=== PATIENT | female | born 1955 | race Caucasian/White ===

== ENCOUNTER 2018-07-21 16:02 | Emergency (ER) | payer BC ==
[2018-07-21 17:37] LABS: #Lymphocytes 1.7 thou/uL (1.20-3.40); #Monocytes 0.3 thou/uL (0.11-0.59); #Neutrophils 2.5 thou/uL (1.40-6.50); %Basophils 0.9 % (0.0-1.0); %Eosinophils 0.5 % (0.0-10.0); %Lymphocytes 36.2 % (21.0-51.0); %Monocytes 7.4 % (0.0-10.0); Hemoglobin 13.8 g/dL (12.0-16.0); Mean Corpuscular HGB CONC 34.8 g/dL (32.0-36.0); Mean Corpuscular Hemoglobin 34.1 pg (27.0-31.0); Mean Corpuscular Volume 98.2 fL (78.0-98.0); Platelet Count 208 thou/uL (130-400); RBC Distribution Width 12.3 % (11.5-14.5); Red Blood Cell (RBC) Count 4.05 mill/uL (4.20-5.40); White Blood Cell (WBC) Count 4.6 thou/uL (4.8-10.8)
--- NOTE | 2018-07-21 17:40 | CT ---
HEAD CT WITHOUT CONTRAST: History: Headache. Comparison: None. FINDINGS: No parenchymal hemorrhage. No extraaxial hematoma. No midline shift. Basilar cisterns are patent. Age appropriate brain volume. Cortical martin white matter differentiation preserved. No evidence of hydrocephalus. Calvarium is intact. Adequate aeration of the sinuses and mastoid air cells. There is cavernous carot id atherosclerosis. IMPRESSION: No acute intracranial process. POS: [facility]
[2018-07-21 17:59] LABS: ALT (SGPT) 19 U/L (8-55); AST (SGOT) 22 U/L (5-34); Albumin 4.5 g/dL (3.4-4.8); Alkaline Phosphatase 88 U/L (40-150); Anion Gap 16 mmol/L (10-20); BUN (Urea Nitrogen) 14 mg/dL (9.8-20.1); Bilirubin, Total 0.4 mg/dL (0.2-1.2); Calc. Creatinine Clearance 0 mL/min (70-130); Calcium 9.5 mg/dL (7.8-10.44); Carbon Dioxide 23 mmol/L (23-31); Chloride 107 mmol/L (98-107); Estimated GFR-MDRD 74; Globulin 2.5 g/dL (2.4-3.5); Glucose 82 mg/dL (80-115); Potassium 4.1 mmol/L (3.5-5.1); Sodium 142 mmol/L (136-145)
[2018-07-21] MEDS ORDERED: Lorazepam 2 MG/ML VIAL ONE (18:08)
[2018-07-21 18:27] LABS: Bilirubin Small (Negative); Blood, Urine Negative (Negative); Clarity CLEAR (Clear); Glucose, Urine (Dipstick) Negative (Negative); Leukocyte Negative (Negative); Nitrite Negative (Negative); Protein, Urine (Dipstick) Negative (Neg-Trace); Specific Gravity, Urine 1.023 (1.002-1.036); Urobilinogen 0.2 mg/dL (0.2-1.0); pH, Urine 5.5 (5.0-9.0)
[2018-07-21 18:31] LABS: Acetaminophen Less than 6.0 mcg/mL (10.0-30.0); Alcohol Less than 10 mg/dL (Less than 10); Salicylate Less than 8.0 mg/dL (15.0-30.0)
[2018-07-21 18:44] LABS: Amphetamine Not Detected (NotDetected); Barbiturates Screen Not Detected (NotDetected); Benzodiazepine Screen Not Detected (NotDetected); Cocaine Metabolite Screen Not Detected (NotDetected); Medtox Control Line Valid? VALID (VALID); Medtox Reader # READER 1; Methadone Not Detected (NotDetected); Methamphetamine Not Detected (NotDetected); Opiate Screen Not Detected (NotDetected); Oxycodone Screen Not Detected (NotDetected); Phencyclidine (PCP) Not Detected (NotDetected); THC/Cannabinoid Screen Not Detected (NotDetected); Tricyclic Screen Not Detected (NotDetected)
[2018-07-21] MEDS ORDERED: Acetaminophen 325 MG TAB ONE (23:05)
== END 2018-07-22 01:17 ==
LOC: ERS 16:02
DX: F32.9 Major depressive disorder, single episode, unspecified (principal); F41.9 Anxiety disorder, unspecified; F17.210 Nicotine dependence, cigarettes, uncomplicated; F22 Delusional disorders
CPT/HCPCS: 36415; 51701; 70450; 80053; 80306; 80307; 81003; 82550; 84443; 85025; 96372; J2060

== ENCOUNTER 2020-02-05 17:46 | Inpatient (IN) | payer MEDICARE, OTHER ==
[2020-02-05] MEDS ORDERED: Midazolam HCl 5 mg/ml Vial ONE (18:08)
[2020-02-05 18:19] LABS: #Lymphocytes 0.8 thou/uL (1.20-3.40); #Monocytes 0.2 thou/uL (0.11-0.59); #Neutrophils 5.3 thou/uL (1.40-6.50); %Basophils 0.3 % (0.0-1.0); %Eosinophils 0.1 % (0.0-10.0); %Lymphocytes 12.4 % (21.0-51.0); %Monocytes 3.8 % (0.0-10.0); %Neutrophils 83.4 % (42.0-75.0); Hemoglobin 12.7 g/dL (12.0-16.0); Mean Corpuscular HGB CONC 33.9 g/dL (32.0-36.0); Mean Corpuscular Hemoglobin 32.8 pg (27.0-31.0); Mean Corpuscular Volume 96.7 fL (78.0-98.0); Mean Platelet Volume 8.5 fL (7.4-10.4); Platelet Count 180 thou/uL (130-400); RBC Distribution Width 12.4 % (11.5-14.5); Red Blood Cell (RBC) Count 3.86 mill/uL (4.20-5.40); White Blood Cell (WBC) Count 6.4 thou/uL (4.8-10.8)
[2020-02-05 18:26] LABS: Actual Bicarbonate (HCO3a) 25.4 mEq/L (22-28); Analyzer IN Cardio ER; Base Excess (BEa) 1.6 mEq/L (-2.0 to +3.0); CO2 Tension 37.6 mmHg (35.0-45.0); Calcium, Ionized (arterial) 1.02 mmol/L (1.12-1.30); Carboxyhemoglobin (COHb) 2.4 gm% (0.0-3.0); Hemoglobin (Hb) 13.6 g/dL (12.0-16.0); O2 Tension (PaO2), arterial 103.6 mmHg (> 80.0); Potassium - ABG Lab 3.61 mmol/L (3.70-5.30); pH, Arterial 7.45 (7.35-7.45)
[2020-02-05 18:27] LABS: Puncture Site LB
[2020-02-05 18:28] LABS: Bilirubin Negative (Negative); Blood, Urine Negative (Negative); Clarity Clear (Clear); Glucose, Urine (Dipstick) Normal (Negative); Leukocyte 250 Leu/uL (Negative); Mucous/LPF 1+ LPF (<2+); Nitrite Negative (Negative); Protein, Urine (Dipstick) 20 mg/dL (Neg-Trace); RBC/HPF 0-3 HPF (0-3); Squamous Epithelial 0-3 HPF (0-3); Urobilinogen Normal mg/dL (Less than 2)
[2020-02-05 18:29] LABS: Bacteria/HPF 1+ HPF (None Seen)
[2020-02-05 18:35] LABS: Acetaminophen Less than 6.0 mcg/mL (10.0-30.0); Alcohol Less than 10 mg/dL (Less than 10); Salicylate Less than 8.0 mg/dL (15.0-30.0)
[2020-02-05 18:41] LABS: ALT (SGPT) 13 U/L (8-55); AST (SGOT) 17 U/L (5-34); Albumin 3.9 g/dL (3.4-4.8); Alkaline Phosphatase 91 U/L (40-110); Anion Gap 18 mmol/L (10-20); BUN (Urea Nitrogen) 13 mg/dL (9.8-20.1); Bilirubin, Total 0.3 mg/dL (0.2-1.2); Calc. Creatinine Clearance 0 mL/min (70-130); Calcium 7.7 mg/dL (7.8-10.44); Carbon Dioxide 26 mmol/L (23-31); Chloride 108 mmol/L (98-107); Estimated GFR-MDRD 78; Globulin 1.9 g/dL (2.4-3.5); Glucose 79 mg/dL (80-115); Potassium 3.5 mmol/L (3.5-5.1); Protein, Total 5.8 g/dL (6.0-8.3); Sodium 148 mmol/L (136-145)
[2020-02-05 18:41] LABS: Amphetamine Not Detected (NotDetected); Barbiturates Screen Not Detected (NotDetected); Benzodiazepine Screen Not Detected (NotDetected); Cocaine Metabolite Screen Not Detected (NotDetected); Medtox Control Line Valid? VALID (VALID); Medtox Reader # READER 1; Methadone Not Detected (NotDetected); Methamphetamine Not Detected (NotDetected); Opiate Screen Not Detected (NotDetected); Oxycodone Screen Not Detected (NotDetected); Phencyclidine (PCP) Not Detected (NotDetected); THC/Cannabinoid Screen Not Detected (NotDetected); Tricyclic Screen Detected (NotDetected)
[2020-02-05] MEDS ORDERED: fentaNYL Citrate/PF 2,000 MCG in Sodium Chloride 0.9% 60 ML IV SCH ×2 (18:46→20:15)
[2020-02-05] MEDS ORDERED: Fentanyl 100 MCG/2 ML VIAL ONE (19:17)
[2020-02-05] MEDS ORDERED: Electrolyte Replacement Protoc 1 EACH EACH IVPB SCH (20:04)
[2020-02-05] MEDS ORDERED: Potassium Phosphate 15 MMOL in Sodium Chloride 0.9% 250 ML 250 ML IV PRN (20:15)
[2020-02-05] MEDS ORDERED: DISCONTINUE PREVIOUS NARCOTIC PAIN MEDICATIONS AND BENZODIAZEPINES FS SCH (20:15)
[2020-02-05] MEDS ORDERED: Potassium Phosphate 9 MMOL in Sodium Chloride 0.9% 100 ML IVPB PRN (20:15)
[2020-02-05] MEDS ORDERED: Propofol BOLUS 1,000 MG/100 ML VIAL IV PRN (20:15)
[2020-02-05] MEDS ORDERED: Potassium Chloride 20 MEQ TAB PO PRN (20:15)
[2020-02-05] MEDS ORDERED: Magnesium 2 GM/50 ML 2 GM in Premix Bag 1 BAG IVPB PRN (20:15)
[2020-02-05] MEDS ORDERED: PHOS-NAK 1 PKT PACK PO PRN ×2 (20:15)
[2020-02-05] MEDS ORDERED: Propofol 1,000 MG/100 ML VIAL IV PRN (20:15)
[2020-02-05] MEDS ORDERED: Morphine 2 MG/ML SYRINGE SLOW IVP PRN (20:15)
[2020-02-05] MEDS ORDERED: Fentanyl BOLUS 250 ML IVPB PRN (20:15)
[2020-02-05] MEDS ORDERED: Ventilator Sedation Protocol 1 EACH FS SCH (20:15)
[2020-02-05] MEDS ORDERED: Potassium Chloride 40 MEQ in Premix Bag 1 BAG IVPB PRN (20:15)
[2020-02-05] MEDS ORDERED: Potassium Phosphate 12 MMOL in Sodium Chloride 0.9% 250 ML 250 ML IV PRN (20:15)
[2020-02-05] MEDS ORDERED: CCU ELECTROLYTE REPLACEMENT PROTOCOL FS PRN (20:15)
[2020-02-05] MEDS ORDERED: Magnesium Oxide 400 MG TAB PO PRN ×2 (20:15)
--- NOTE | 2020-02-05 20:46 | PDOC.EVN ---
Event Note - Event Note Event Note: [id number] HP dictated
--- NOTE | 2020-02-05 21:08 | RAD ---
SINGLE VIEW OF THE CHEST: 02/05/20 COMPARISON: 11/27/13 HISTORY: Unresponsive. Found at home. FINDINGS: Single view of the chest shows normal sized cardiomediastinal silhouette. An endotracheal tube is see n with its tip approximately 1.5 cm from the eliot. An NG tube is seen in the stomach. There is no e vidence of consolidation, mass or pleural effusion. IMPRESSION: Appropriate position of lines and tubes. POS: [facility]
[2020-02-05] MEDS: Famotidine/PF 20 mg/2ml Vial SLOW IVP SCH (21:43)
[2020-02-05] MEDS: Sodium Chloride 0.9% 1,000 ML IV SCH (21:43)
--- NOTE | 2020-02-05 21:48 | CT ---
CT BRAIN WITHOUT CONTRAST: 02/05/20 HISTORY: Unresponsive, drug overdose. COMPARISON: 07/21/18. FINDINGS: No evidence of acute infarct, hemorrhage, midline shift or abnormal extra-axial fluid collections are seen. The ventricular size is normal and the basilar cisterns patent. Basal ganglia calcifications a re again seen. The bony calvarium is intact. The visualized paranasal sinuses and mastoid air cells a re well aerated. IMPRESSION: No CT evidence of acute intracranial process. POS: [facility]
--- NOTE | 2020-02-05 21:52 | CT ---
CT OF THE CERVICAL SPINE WITHOUT CONTRAST: 02/05/20 HISTORY: Patient was found down unresponsive with possible drug overdose. TECHNIQUE: Multiple contiguous axial images were obtained in a CT of the cervical spine without contrast. Sagitt al and coronal reformats were performed. FINDINGS: Mild degenerative changes are seen in the cervical spine. The vertebral bodies demonstrate normal he ight and alignment without acute fracture or subluxation. No prevertebral soft tissue swelling is see n. An endotracheal tube and NG tube are partially visualized. The posterior facets are well aligned. Normal alignment of the skull base with the cervical spine is seen. IMPRESSION: No evidence of acute osseous abnormality of the cervical spine. POS: [facility]
--- NOTE | 2020-02-06 01:32 | HP ---
CHIEF COMPLAINT: Unresponsive. HISTORY OF PRESENT ILLNESS: Ms. Ellison is a 64-year-old female with past medical history of ?anxiety, depression, previous psychiatric admissions, was brought to the emergency room with possible drug overdose. The patient was found unresponsive. The patient was seen normal this morning and then was found unresponsive in her house at 4:30 p.m. The patient did have a bottle of amitriptyline next to her that was 75 mg tablets, quantity was 30. This was filled on August 27, 2019. The patient is supposed to take one tablet by mouth at bedtime. The patient did have a widened QRS for [facility] and was given sodium bicarb. The patient does not have any other significant history known at this time. The patient did have some tremors movement, which was unsure if she is having seizures or not. The pupils were midpoint and reactive. The patient was tachycardic with heart rate in the 130. The patient had a Middleton coma Scale of 7, the patient was intubated for airway protection. The patient is being admitted to the ICU for further management. PAST MEDICAL HISTORY: Not complete, but as per records; 1. Anxiety, depression. 2. Paranoia. PAST PSYCHIATRIC HISTORY: As per records. Uses tobacco. Smokes 1 pack per day. Drinks less than 5 drinks per day. PAST SURGICAL HISTORY: 1. Tonsillectomy. 2. Tubal ligation. 3. Hysterectomy. FAMILY HISTORY: Unknown. ALLERGIES: NO KNOWN ALLERGIES. CURRENT MEDICATIONS: As per records; 1. Perphenazine. 2. Amitriptyline. 3. Buspirone. Need to be verified. REVIEW OF SYSTEMS: Unable to obtain. The patient is currently sedated and mechanically ventilated. PHYSICAL EXAMINATION: GENERAL: The patient is intubated, mechanically ventilated, sedated. VITAL SIGNS: Blood pressure is 120/88, pulse is 92, respiratory rate is 16, temperature 96.1, oxygen saturation is 100% on room air. HEAD: Normocephalic. NECK: Supple. CHEST: Fair bilateral air entry. HEART: S1, S2. Regular. ABDOMEN: Soft. Bowel sounds present. NEUROLOGIC: Intubated, sedated. Unable to assess. PSYCHIATRIC: Intubated, sedated. Unable to assess. GENITOURINARY: No suprapubic tenderness. No flank tenderness. MUSCULOSKELETAL: No apparent deformity. LABORATORY DATA: Urine drug screen positive for tricyclics. Sodium is 148, glucose is 79. Acetaminophen less than 6, salicylate less than 8. ABG on the ventilator, pH 7.45, pCO2 is 37, PO2 is 103. This was done on SIMV mode with FiO2 of 30%. PEEP of 5. WBC count is 6.4, hemoglobin 12.7, platelets 180. ASSESSMENT: 1. Acute toxic/metabolic encephalopathy. 2. Drug overdose, suspected tricyclics? 3. Acute respiratory failure. The patient intubated for airway protection, unable to maintain her airway due to poor Sandra coma Scale. 4. Anxiety/depression history. 5. Seizures?? PLAN: 1. Admit to ICU. 2. Continue full ventilator support. 3. Keep n.p.o. 4. IV fluids. 5. Telemetry monitoring, monitor for arrhythmias and widened QRS and QT. 6. Pulmonary consulted for ventilator management. 7. The patient was given activated charcoal in the ED. 8. Reconcile medications. 9. DVT prophylaxis as appropriate. 10. GI prophylaxis as appropriate. 11. Expected length of stay, 2 midnights or more. Job ID: [id number]
[2020-02-06 03:46] LABS: #Lymphocytes 1.5 thou/uL (1.20-3.40); #Monocytes 0.3 thou/uL (0.11-0.59); #Neutrophils 2.8 thou/uL (1.40-6.50); %Basophils 0.4 % (0.0-1.0); %Eosinophils 0.6 % (0.0-10.0); %Lymphocytes 31.5 % (21.0-51.0); %Monocytes 6.9 % (0.0-10.0); %Neutrophils 60.6 % (42.0-75.0); Hemoglobin 11.8 g/dL (12.0-16.0); Mean Corpuscular HGB CONC 34.9 g/dL (32.0-36.0); Mean Corpuscular Hemoglobin 33.4 pg (27.0-31.0); Mean Corpuscular Volume 95.8 fL (78.0-98.0); Mean Platelet Volume 8.1 fL (7.4-10.4); Platelet Count 151 thou/uL (130-400); RBC Distribution Width 12.3 % (11.5-14.5); Red Blood Cell (RBC) Count 3.51 mill/uL (4.20-5.40); White Blood Cell (WBC) Count 4.7 thou/uL (4.8-10.8)
[2020-02-06 04:11] LABS: ALT (SGPT) 9 U/L (8-55); AST (SGOT) 15 U/L (5-34); Albumin 3.3 g/dL (3.4-4.8); Alkaline Phosphatase 78 U/L (40-110); Anion Gap 10 mmol/L (10-20); BUN (Urea Nitrogen) 10 mg/dL (9.8-20.1); Bilirubin, Total 0.3 mg/dL (0.2-1.2); Calc. Creatinine Clearance 79 mL/min (70-130); Calcium 7.3 mg/dL (7.8-10.44); Carbon Dioxide 24 mmol/L (23-31); Chloride 111 mmol/L (98-107); Estimated GFR-MDRD 84; Globulin 1.7 g/dL (2.4-3.5); Glucose 95 mg/dL (80-115); Sodium 142 mmol/L (136-145)
[2020-02-06] MEDS: Lorazepam 2 MG/ML VIAL SLOW IVP PRN (04:11)
[2020-02-06 04:13] LABS: Potassium 2.7 mmol/L (3.5-5.1)
[2020-02-06] MEDS: Potassium Chloride 40 MEQ in Sodium Chloride 0.9% 250 ML 250 ML IVPB PRN (05:04)
[2020-02-06] MEDS: Sodium Chloride 0.9% 1,000 ML IV SCH ×2 (07:06→18:45)
[2020-02-06 07:20] LABS: Base Excess (BEa) -2.2 mEq/L (-2.0 to +3.0); CO2 Tension 27.1 mmHg (35.0-45.0); Calcium, Ionized (arterial) 1.05 mmol/L (1.12-1.30); Carboxyhemoglobin (COHb) 0.4 gm% (0.0-3.0); Hemoglobin (Hb) 11.8 g/dL (12.0-16.0); O2 Tension (PaO2), arterial 112.2 mmHg (> 80.0); Potassium - ABG Lab 3.79 mmol/L (3.70-5.30); pH, Arterial 7.49 (7.35-7.45)
[2020-02-06 07:26] LABS: Puncture Site L.R.
[2020-02-06 07:27] LABS: ALV-art Gradient 67.825 (0-20)
[2020-02-06] MEDS: Enoxaparin Sodium 40 MG/0.4 ML SYRINGE SC SCH (08:26)
[2020-02-06] MEDS: Famotidine/PF 20 mg/2ml Vial SLOW IVP SCH ×2 (08:26→20:57)
--- NOTE | 2020-02-06 13:56 | PRG ---
DATE OF SERVICE: 02/06/2020 HISTORY OF PRESENT ILLNESS: Ms. Ellison is a 64-year-old female who apparently is on amitriptyline for hypertension, but had not filled her prescription since July. Family noticed that she had difficult speech on the phone. Family member went over to check she was down on the floor. She has since been intubated. She is poorly responsive. She never coded. PAST MEDICAL HISTORY: Remarkable obviously for, 1. Depression. 2. History of tonsillectomy. 3. History of tubal ligation. 4. Status post hysterectomy. SOCIAL HISTORY: She drinks every day and smokes a pack a day according to the records. FAMILY HISTORY: Unknown. REVIEW OF SYSTEMS: Not obtainable. PHYSICAL EXAMINATION: VITAL SIGNS: Heart rate is 85, blood pressure 106/72, and respiratory rate is in the 20s. HEENT: Pupils are equal. Sclerae are anicteric. NECK: Supple. No lymphadenopathy. LUNGS: Clear. HEART: Regular rhythm. ABDOMEN: Soft and nontender. NEUROLOGIC: She moves her extremities spontaneously . LABORATORY DATA: White count 4.7, hemoglobin 11.8, and platelets 151,000. Sodium 142, potassium 2.7, chloride 111, bicarb 24, BUN 10, creatinine 0.7. PH 7.9, CO2 27, PO2 of 112. Chest x-ray showed no infiltrates. IMPRESSION: Elavil overdose. She is not having any cardiac dysrhythmias or hypotension. We will just have to wait for this to wear off. She has received activated charcoal. CRITICAL CARE TIME: 30 minutes. Job ID: [id number]
--- NOTE | 2020-02-06 18:23 | PDOC.HOSPP ---
- Subjective Encounter Date: 02/06/20 Encounter Time: 08:00 Subjective: no overnight events. this morning, remains somnolent, responds to pain stimulus. Intubated for airway protection - Objective Vital Signs & Weight: Vital Signs (12 hours) Temp Pulse Resp BP Pulse Ox 02/06/20 16:00 12 02/06/20 15:34 86 103/70 02/06/20 15:20 99.6 F 02/06/20 14:00 12 02/06/20 12:00 99.7 F H 12 02/06/20 10:37 85 106/72 02/06/20 10:00 12 02/06/20 08:00 98.4 F 12 02/06/20 07:35 100 02/06/20 06:54 84 101/79 Weight Admit Weight 138 lb Weight 138 lb 0.15 oz Most Recent Monitor Data Heart Rate from ECG 77 NIBP 102/71 NIBP BP-Mean 81 Respiration from ECG 12 SpO2 100 I&O: 02/05/20 02/06/20 02/07/20 06:59 06:59 06:59 Intake Total 825 240 Output Total 443 281 Balance 382 -41 Result Diagrams: 02/06/20 03:25 02/06/20 03:25 Hospitalist ROS - Review of Systems ROS unobtainable: due to endotracheal tube - Medication Medications: Active Medications Generic Name Dose Route Start Last Admin Trade Name Freq PRN Reason Stop Dose Admin Enoxaparin Sodium 40 mg 02/06/20 09:00 02/06/20 08:26 Lovenox SC 40 mg 0900 LOYDA Administration Famotidine 20 mg 02/05/20 21:00 02/06/20 08:26 Pepcid SLOW IVP 20 mg BID LOYDA Administration Potassium Chloride 40 meq/ 270 mls @ 135 mls/hr 02/05/20 20:15 02/06/20 05:04 Sodium Chloride IVPB 270 mls ASDIR PRN Administration FOR SERUM K+ 2.5 - 3.5 Lorazepam 2 mg 02/05/20 20:15 02/06/20 04:11 Ativan SLOW IVP 03/06/20 20:15 2 mg Q1H PRN Administration Breakthrough agitation Sodium Chloride 10 ml 02/05/20 21:00 02/06/20 08:26 Flush - Normal Saline IVF 10 ml Q12HR LOYDA Administration - Exam General - other findings: intubated Eye: PERRL, anicteric sclera Neck: no JVD Heart: RRR, no murmur, no gallops, no rubs Heart - other findings: normal sinus on tele with no EKG signs of tricyclic intoxication Respiratory: CTAB, no wheezes, no rales, no ronchi Gastrointestinal: soft, non-distended, normal bowel sounds Extremities: no edema Hosp A/P - Plan #tricyclic intoxication #anxiety, depression, paranoia -remains somnolent; considering long half life of tricyclics, may take days before alertness improves -intubated for airway protection; ABG respiratory alkalosis -ventilation as per PCCM; hopefully more alert and can protect airway by 02/06 -continue to follow telemetry, hydrate since most amitryptiline eliminated in urine, follow I/O since anticholinergic effect can cause urinary retention full code GI PPx no Ix DVT PPx lovenox
[2020-02-06] MEDS ORDERED: Sodium Chloride 0.9% 1,000 ML IV SCH (18:45)
[2020-02-06 19:27] LABS: Potassium 3.6 mmol/L (3.5-5.1)
[2020-02-07] MEDS: Lorazepam 2 MG/ML VIAL SLOW IVP PRN ×2 (03:54→20:54)
[2020-02-07 04:22] LABS: Anion Gap 16 mmol/L (10-20); BUN (Urea Nitrogen) 6 mg/dL (9.8-20.1); Calc. Creatinine Clearance 83 mL/min (70-130); Calcium 7.6 mg/dL (7.8-10.44); Carbon Dioxide 13 mmol/L (23-31); Chloride 117 mmol/L (98-107); Estimated GFR-MDRD 87; Glucose 68 mg/dL (80-115); Magnesium 1.5 mg/dL (1.6-2.6); Sodium 141 mmol/L (136-145)
[2020-02-07 06:45] LABS: Base Excess (BEa) -6.2 mEq/L (-2.0 to +3.0); CO2 Tension 36.4 mmHg (35.0-45.0); Calcium, Ionized (arterial) 1.17 mmol/L (1.12-1.30); Hemoglobin (Hb) 11.5 g/dL (12.0-16.0); O2 Tension (PaO2), arterial 77.5 mmHg (> 80.0); Potassium - ABG Lab 3.63 mmol/L (3.70-5.30); Puncture Site RRA; pH, Arterial 7.34 (7.35-7.45)
[2020-02-07] MEDS: Enoxaparin Sodium 40 MG/0.4 ML SYRINGE SC SCH (08:22)
[2020-02-07] MEDS: Famotidine/PF 20 mg/2ml Vial SLOW IVP SCH ×2 (08:23→20:53)
[2020-02-07] MEDS: Dextrose 5% in Water 1,000 ML IV SCH ×2 (11:00→20:25)
--- NOTE | 2020-02-07 12:41 | PRG ---
DATE OF SERVICE: 02/07/2020 SUBJECTIVE: Jonathon Ellison awakens with stimulation with her sedation going. The sedation was held this morning. OBJECTIVE: VITAL SIGNS: Heart rate is 100, blood pressure 100/71, FiO2 is at 30%, oximetry is in the high 90s. HEAD AND NECK: Unremarkable. LUNGS: Clear. HEART: Regular rhythm. ABDOMEN: Soft. EXTREMITIES: Without asymmetry or edema. She is coughing up some thick white sputum in her endotracheal tube. LABORATORY DATA: White count 4.7, hemoglobin 11.8, platelets 151. Sodium 141, potassium 4, chloride 117, bicarb 13, BUN 6, creatinine 0.68. PH 7.34, pCO2 of 36, pO2 of 77. IMPRESSION AND PLAN: 1. Respiratory failure after drug overdose. 2. Hyperchloremic acidosis. She has been switched to D5. If she awakens and passes a weaning spontaneous breathing trial and a leak test , she can be extubated. Critical care time 30 min. Job ID: [id number] MTDD
[2020-02-07] MEDS ORDERED: Propofol BOLUS 1,000 MG/100 ML VIAL IV PRN (16:06)
[2020-02-07] MEDS ORDERED: Morphine 2 MG/ML SYRINGE SLOW IVP PRN (16:06)
[2020-02-07] MEDS ORDERED: Fentanyl BOLUS 250 ML IVPB PRN (16:06)
[2020-02-07] MEDS ORDERED: Propofol 1,000 MG/100 ML VIAL IV PRN (16:06)
[2020-02-07] MEDS ORDERED: DISCONTINUE PREVIOUS NARCOTIC PAIN MEDICATIONS AND BENZODIAZEPINES FS SCH (16:06)
--- NOTE | 2020-02-07 16:31 | PRG ---
DATE OF SERVICE: 02/07/2020 Ms. Ellison has had a spontaneous breathing trial all day and her tidal volumes are too small to justify extubation. She is still somnolent. We will await until tomorrow and reassess her. Job ID: [id number]
--- NOTE | 2020-02-07 17:46 | PDOC.HOSPP ---
- Subjective Encounter Date: 02/07/20 Encounter Time: 11:30 Subjective: Pt seen for followup re: toxic metabolic encephalopathy. Pt intubated, unable to complete ROS. - Objective Vital Signs & Weight: Vital Signs (12 hours) Temp Pulse Resp BP Pulse Ox 02/07/20 16:04 101 H 119/79 02/07/20 16:00 101.5 F H 14 02/07/20 14:38 104 H 115/110 H 02/07/20 13:47 102 H 129/78 02/07/20 12:06 103 H 124/79 02/07/20 12:00 98.3 F 22 H 02/07/20 10:21 100 100/71 02/07/20 10:00 13 02/07/20 08:00 99.9 F H 12 100 02/07/20 06:30 90 102/69 02/07/20 06:00 12 Weight Admit Weight 138 lb Weight 137 lb 14.4 oz Most Recent Monitor Data Heart Rate from ECG 102 NIBP 115/74 NIBP BP-Mean 87 Respiration from ECG 12 SpO2 99 I&O: 02/06/20 02/07/20 02/08/20 06:59 06:59 06:59 Intake Total 825 1637 521 Output Total 443 611 730 Balance 382 1026 -209 Result Diagrams: 02/06/20 03:25 02/07/20 02:49 Additional Labs: Labs and MARs reviewed by me EKG Reviewed by me: Yes (Tele: NSR) Hospitalist ROS - Review of Systems ROS unobtainable: due to endotracheal tube - Medication Medications: Active Medications Generic Name Dose Route Start Last Admin Trade Name Freq PRN Reason Stop Dose Admin Enoxaparin Sodium 40 mg 02/06/20 09:00 02/07/20 08:22 Lovenox SC 40 mg 0900 LOYDA Administration Famotidine 20 mg 02/05/20 21:00 02/07/20 08:23 Pepcid SLOW IVP 20 mg BID LOYDA Administration Potassium Chloride 40 meq/ 270 mls @ 135 mls/hr 02/05/20 20:15 02/06/20 05:04 Sodium Chloride IVPB 270 mls ASDIR PRN Administration FOR SERUM K+ 2.5 - 3.5 Dextrose/Water 1,000 mls @ 100 mls/hr 02/07/20 09:45 02/07/20 11:00 D5w IV 1,000 mls .Q10H LOYDA Administration Levofloxacin 750 mg/ Device 150 mls @ 100 mls/hr 02/07/20 17:00 02/07/20 17: 04 IVPB 150 mls 1700 LOYDA Administration Sodium Chloride 10 ml 02/05/20 21:00 02/07/20 08:24 Flush - Normal Saline IVF 10 ml Q12HR LOYDA Administration - Exam Eye: anicteric sclera ENT: normocephalic atraumatic Neck: supple Heart: RRR Respiratory: CTAB Gastrointestinal: soft, non-tender Skin: no rashes Psychiatric - other findings: Unable to assess Hosp A/P - Plan - Assessment/Plan #acute metabolic encephalopathy -secondary to tricyclic overdose #tricyclic intoxication -monitor on telemetry for QRS widening -intubated for airway protection; ABG respiratory alkalosis -ventilation as per PCCM
[2020-02-07] MEDS: Vancomycin 1 GM in Premix Bag 1 BAG IVPB SCH (18:17)
[2020-02-07] MEDS ORDERED: Acetaminophen 325 MG TAB PO PRN (18:23)
[2020-02-07] MEDS ORDERED: Acetaminophen 650 MG Suppository PR PRN (19:03)
[2020-02-07] MEDS: fentaNYL Citrate/PF 2,000 MCG in Sodium Chloride 0.9% 60 ML IV SCH (21:11)
[2020-02-08] MEDS: Vancomycin 1 GM in Premix Bag 1 BAG IVPB SCH ×2 (06:09→17:35)
[2020-02-08] MEDS: Enoxaparin Sodium 40 MG/0.4 ML SYRINGE SC SCH (07:35)
[2020-02-08] MEDS: Famotidine/PF 20 mg/2ml Vial SLOW IVP SCH ×2 (07:35→20:30)
[2020-02-08 07:58] LABS: Actual Bicarbonate (HCO3a) 16.2 mEq/L (22-28); Base Excess (BEa) -7.9 mEq/L (-2.0 to +3.0); O2 Tension (PaO2), arterial 55.8 mmHg (> 80.0); pH, Arterial 7.38 (7.35-7.45)
[2020-02-08 07:59] LABS: Carboxyhemoglobin (COHb) 0.2 gm% (0.0-3.0); Hemoglobin (Hb) 8.9 g/dL (12.0-16.0)
[2020-02-08 08:00] LABS: Calcium, Ionized (arterial) 0.95 mmol/L (1.12-1.30); Potassium - ABG Lab 3.14 mmol/L (3.70-5.30)
[2020-02-08 08:01] LABS: Analyzer IN Cardio OR; Puncture Site LBA
[2020-02-08] MEDS: Lorazepam 2 MG/ML VIAL SLOW IVP PRN (10:48)
[2020-02-08] MEDS: Dextrose 5% in Water 1,000 ML IV SCH ×2 (10:48→20:29)
[2020-02-08] MEDS: methylPREDNISolone Sod Succ 40 MG VIAL IVP SCH ×3 (10:56→23:02)
--- NOTE | 2020-02-08 14:31 | PDOC.HOSPP ---
- Subjective Encounter Date: 02/08/20 Encounter Time: 09:30 Subjective: Pt seen for followup re: metabolic encephalopathy. Intubated, unable to complete ROS. - Objective Vital Signs & Weight: Vital Signs (12 hours) Temp Pulse Resp BP Pulse Ox 02/08/20 13:26 76 114/67 02/08/20 12:00 12 02/08/20 10:00 87 16 127/80 02/08/20 08:00 12 02/08/20 06:29 77 101/66 02/08/20 06:00 12 02/08/20 04:00 99.3 F 12 02/08/20 02:30 100 Weight Admit Weight 138 lb Weight 135 lb 6.4 oz Most Recent Monitor Data Heart Rate from ECG 78 NIBP 114/67 NIBP BP-Mean 82 Respiration from ECG 12 SpO2 100 I&O: 02/07/20 02/08/20 02/09/20 06:59 06:59 06:59 Intake Total 1637 1276 Output Total 611 8916 7486 Balance 1896 -771 -7400 Result Diagrams: 02/06/20 03:25 02/07/20 02:49 Additional Labs: Labs and MARs reviewed by me EKG Reviewed by me: Yes (Tele: NSR) Hospitalist ROS - Review of Systems ROS unobtainable: due to endotracheal tube - Medication Medications: Active Medications Generic Name Dose Route Start Last Admin Trade Name Freq PRN Reason Stop Dose Admin Acetaminophen 650 mg 02/07/20 19:03 02/07/20 19:44 Tylenol [place] 650 mg Q6H PRN Administration Mild Pain (1-3)/FEVER Enoxaparin Sodium 40 mg 02/06/20 09:00 02/08/20 07:35 Lovenox SC 40 mg 0900 LOYDA Administration Famotidine 20 mg 02/05/20 21:00 02/08/20 07:35 Pepcid SLOW IVP 20 mg BID LOYDA Administration Potassium Chloride 40 meq/ 270 mls @ 135 mls/hr 02/05/20 20:15 02/06/20 05:04 Sodium Chloride IVPB 270 mls ASDIR PRN Administration FOR SERUM K+ 2.5 - 3.5 Dextrose/Water 1,000 mls @ 100 mls/hr 02/07/20 09:45 02/08/20 10:48 D5w IV 1,000 mls .Q10H LOYDA Administration Fentanyl Citrate 2,000 mcg/ 100 mls @ 0 mls/hr 02/07/20 16:06 02/07/20 21:11 Sodium Chloride IV 03/08/20 16:06 100 mls INF LOYDA Administration Protocol Per Protocol Levofloxacin 750 mg/ Device 150 mls @ 100 mls/hr 02/07/20 17:00 02/07/20 17: 04 IVPB 150 mls 1700 LOYDA Administration Vancomycin HCl 1 gm/ Device 200 mls @ 200 mls/hr 02/07/20 18:00 02/08/20 06: 09 IVPB 200 mls 0600,1800 LOYDA Administration Lorazepam 2 mg 02/07/20 16:06 02/08/20 10:48 Ativan SLOW IVP 03/08/20 16:06 2 mg Q1H PRN Administration Breakthrough agitation Methylprednisolone Sodium Succinate 40 mg 02/08/20 12:00 02/08/20 10:56 Solu-Medrol IVP 40 mg Q6HR LOYDA Administration Sodium Chloride 10 ml 02/05/20 21:00 02/08/20 07:35 Flush - Normal Saline IVF 10 ml Q12HR LOYDA Administration - Exam General - other findings: Intubated Eye: anicteric sclera ENT: normocephalic atraumatic Neck: no thyromegaly Neck - other findings: ETT Heart: RRR Respiratory: CTAB Gastrointestinal: soft, non-tender Skin: no rashes Psychiatric - other findings: Unable to assess Hosp A/P - Plan - Assessment/Plan #acute metabolic encephalopathy -Improving, secondary to tricyclic overdose #tricyclic overdose -monitor on telemetry -intubated for airway protection -ventilation as per PCC
--- NOTE | 2020-02-08 15:20 | PRG ---
DATE OF SERVICE: 02/08/2020 SUBJECTIVE: Jonathon Ellison is more alert today, but unfortunately she did not pass a leak test. Steroids have been started. OBJECTIVE: GENERAL: She is in no distress otherwise. VITAL SIGNS: Heart rate 76, blood pressure 114/67, respiratory rate is 12, oximetry is 100%. Her bladder temperature is 100.8. LUNGS: Clear. HEART: Regular rhythm. ABDOMEN: Soft. EXTREMITIES: Without edema. NEUROLOGIC: Nonfocal. LABORATORY DATA: White count was 4.7 two days ago. There are no electrolytes today. IMPRESSION: Respiratory failure associated with drug overdose (Elavil). Check lab on her tomorrow. Repeat the leak test and spontaneous breathing trial in the morning. Critical care time 30 min. Job ID: [id number] MTDD
[2020-02-09 03:36] LABS: Band 24 % (5-11); Hemoglobin 13.2 g/dL (12.0-16.0); Lymphocytes 6 % (21-51); MDiff Complete? YES; Mean Corpuscular HGB CONC 34.1 g/dL (32.0-36.0); Mean Corpuscular Hemoglobin 33.1 pg (27.0-31.0); Mean Corpuscular Volume 96.8 fL (78.0-98.0); Mean Platelet Volume 8.9 fL (7.4-10.4); Monocytes 3 % (0-10); Neutrophil 67 % (42-75); Platelet Count 158 thou/uL (130-400); Platelet Morphology Comment Appears Adequate; RBC Distribution Width 12.4 % (11.5-14.5); White Blood Cell (WBC) Count 6.5 thou/uL (4.8-10.8)
[2020-02-09 03:42] LABS: Anion Gap 14 mmol/L (10-20); BUN (Urea Nitrogen) 5 mg/dL (9.8-20.1); Calc. Creatinine Clearance 84 mL/min (70-130); Calcium 8.3 mg/dL (7.8-10.44); Carbon Dioxide 21 mmol/L (23-31); Chloride 107 mmol/L (98-107); Estimated GFR-MDRD Greater than 90; Glucose 187 mg/dL (80-115); Potassium 3.5 mmol/L (3.5-5.1); Sodium 138 mmol/L (136-145)
[2020-02-09 05:19] LABS: Vancomycin, Trough 10.6 ug/mL
[2020-02-09] MEDS: Dextrose 5% in Water 1,000 ML IV SCH ×3 (05:41→20:54)
[2020-02-09] MEDS: methylPREDNISolone Sod Succ 40 MG VIAL IVP SCH ×4 (05:41→23:25)
[2020-02-09] MEDS: Potassium Chloride 40 MEQ in Sodium Chloride 0.9% 250 ML 250 ML IVPB PRN (05:43)
[2020-02-09] MEDS: Vancomycin HCl 1.25 GM in Sodium Chloride 0.9% 250 ML 250 ML IVPB SCH ×2 (05:44→18:24)
[2020-02-09 06:45] LABS: Base Excess (BEa) -3.5 mEq/L (-2.0 to +3.0); Calcium, Ionized (arterial) 1.16 mmol/L (1.12-1.30); Carboxyhemoglobin (COHb) 0.3 gm% (0.0-3.0); Potassium - ABG Lab 3.93 mmol/L (3.70-5.30); pH, Arterial 7.38 (7.35-7.45)
[2020-02-09 06:49] LABS: Puncture Site LRA
[2020-02-09] MEDS: Famotidine/PF 20 mg/2ml Vial SLOW IVP SCH ×2 (07:38→20:54)
[2020-02-09] MEDS: Enoxaparin Sodium 40 MG/0.4 ML SYRINGE SC SCH (07:38)
[2020-02-09] MEDS: Lorazepam 2 MG/ML VIAL SLOW IVP PRN ×3 (08:55→23:25)
[2020-02-09] MEDS: fentaNYL Citrate/PF 2,000 MCG in Sodium Chloride 0.9% 60 ML IV SCH (09:24)
--- NOTE | 2020-02-09 10:34 | PRG ---
DATE OF SERVICE: 02/09/2020 SUBJECTIVE: Jonathon Ellison still does not pass a leak test. OBJECTIVE: VITAL SIGNS: Heart rate is 80, blood pressure is 106/74, respiratory rates in the teens. LUNGS: Clear. HEART: Regular rhythm. ABDOMEN: Soft. LABORATORY DATA: White count 6.5, hemoglobin 13.2, platelets 158. Sodium 138, potassium 3.5, chloride 107, bicarb 21, BUN 5, creatinine 0.65. IMPRESSION: 1. Status post drug overdose of Elavil. 2. ? vocal cord edema versus obesity. We will give her steroids for another day and then extubate her tomorrow with a bronchoscope at bedside probably. CRITICAL CARE TIME: 30 minutes. Job ID: [id number]
--- NOTE | 2020-02-09 19:27 | PDOC.HOSPP ---
- Subjective Encounter Date: 02/09/20 Encounter Time: 10:20 Subjective: Pt seen for followup re: toxic metabolic encephalopathy. Intubated, ROS not completed. - Objective Vital Signs & Weight: Vital Signs (12 hours) Temp Pulse Resp BP Pulse Ox 02/09/20 18:17 62 02/09/20 18:00 12 02/09/20 17:00 97.5 F L 02/09/20 16:00 12 02/09/20 15:03 67 107/66 02/09/20 14:00 12 02/09/20 12:00 12 02/09/20 10:42 63 102/67 02/09/20 10:00 12 02/09/20 08:00 12 02/09/20 07:54 100 Weight Admit Weight 138 lb Weight 131 lb 9.855 oz Most Recent Monitor Data Heart Rate from ECG 64 NIBP 108/75 NIBP BP-Mean 86 Respiration from ECG 12 SpO2 98 I&O: 02/08/20 02/09/20 02/10/20 06:59 06:59 06:59 Intake Total 1276 2107.8 1548 Output Total 1905 4750 1295 Balance -629 -2642.2 253 Result Diagrams: 02/09/20 02:50 02/09/20 02:50 Additional Labs: Labs and MARs reviewed by me EKG Reviewed by me: Yes (Tele: NSR) Hospitalist ROS - Review of Systems ROS unobtainable: due to endotracheal tube - Medication Medications: Active Medications Generic Name Dose Route Start Last Admin Trade Name Freq PRN Reason Stop Dose Admin Acetaminophen 650 mg 02/07/20 19:03 02/07/20 19:44 Tylenol [place] 650 mg Q6H PRN Administration Mild Pain (1-3)/FEVER Enoxaparin Sodium 40 mg 02/06/20 09:00 02/09/20 07:38 Lovenox SC 40 mg 0900 LOYDA Administration Famotidine 20 mg 02/05/20 21:00 02/09/20 07:38 Pepcid SLOW IVP 20 mg BID LOYDA Administration Potassium Chloride 40 meq/ 270 mls @ 135 mls/hr 02/05/20 20:15 02/09/20 05:43 Sodium Chloride IVPB 270 mls ASDIR PRN Administration FOR SERUM K+ 2.5 - 3.5 Magnesium Sulfate 1 gm/ Sodium 102 mls @ 102 mls/hr 02/05/20 20:15 02/09/20 06:05 Chloride IV 102 mls PRN PRN Administration MAG LEVEL 1.4 - 2.0 Dextrose/Water 1,000 mls @ 50 mls/hr 02/07/20 09:45 02/09/20 11:26 D5w IV 1,000 mls .Q20H LOYDA Administration Fentanyl Citrate 2,000 mcg/ 100 mls @ 0 mls/hr 02/07/20 16:06 02/09/20 09:24 Sodium Chloride IV 03/08/20 16:06 100 mls INF LOYDA Administration Protocol Per Protocol Levofloxacin 750 mg/ Device 150 mls @ 100 mls/hr 02/07/20 17:00 02/09/20 17: 29 IVPB 150 mls 1700 LOYDA Administration Vancomycin HCl 1.25 gm/ Sodium 250 mls @ 166.667 mls/hr 02/09/20 06:00 18:24 Chloride IVPB 250 mls 0600,1800 LOYDA Administration Lorazepam 2 mg 02/07/20 16:06 02/09/20 14:16 Ativan SLOW IVP 03/08/20 16:06 2 mg Q1H PRN Administration Breakthrough agitation Methylprednisolone Sodium Succinate 40 mg 02/08/20 12:00 02/09/20 17:30 Solu-Medrol IVP 40 mg Q6HR LOYDA Administration Morphine Sulfate 2 mg 02/07/20 16:06 02/09/20 08:40 Morphine SLOW IVP 03/08/20 16:06 2 mg Q1H PRN Administration BREAKTHROUGH PAIN/Agitation Sodium Chloride 10 ml 02/05/20 21:00 02/09/20 07:39 Flush - Normal Saline IVF 10 ml Q12HR LOYDA Administration - Exam General - other findings: Intubated ENT: normocephalic atraumatic Neck: no thyromegaly, no lymphadenopathy Neck - other findings: ETT Heart: RRR Respiratory: CTAB, no ronchi Gastrointestinal: soft, non-tender Extremities: no edema Neurological - other findings: Unable to assess Psychiatric - other findings: Unable to assess Hosp A/P - Plan - Assessment/Plan #acute metabolic encephalopathy -Improving #tricyclic overdose -monitor on telemetry -intubated for airway protection, likely extubation tomorrow.
[2020-02-10 03:39] LABS: Band 3 % (5-11); Hemoglobin 11.9 g/dL (12.0-16.0); Hypochromia SLIGHT = 6-15 cells (100X) (0-5/hpf); Lymphocytes 4 % (21-51); MDiff Complete? YES; Mean Corpuscular HGB CONC 33.5 g/dL (32.0-36.0); Mean Corpuscular Hemoglobin 32.3 pg (27.0-31.0); Mean Corpuscular Volume 96.5 fL (78.0-98.0); Mean Platelet Volume 9.2 fL (7.4-10.4); Monocytes 3 % (0-10); Neutrophil 90 % (42-75); Platelet Count 180 thou/uL (130-400); Platelet Morphology Comment Appears Adequate; RBC Distribution Width 12.3 % (11.5-14.5); Red Blood Cell (RBC) Count 3.67 mill/uL (4.20-5.40); White Blood Cell (WBC) Count 6.1 thou/uL (4.8-10.8)
[2020-02-10 03:43] LABS: Anion Gap 13 mmol/L (10-20); BUN (Urea Nitrogen) 7 mg/dL (9.8-20.1); Calc. Creatinine Clearance 91 mL/min (70-130); Calcium 8.1 mg/dL (7.8-10.44); Carbon Dioxide 20 mmol/L (23-31); Chloride 109 mmol/L (98-107); Estimated GFR-MDRD Greater than 90; Glucose 155 mg/dL (80-115); Magnesium 1.8 mg/dL (1.6-2.6); Potassium 3.6 mmol/L (3.5-5.1); Sodium 138 mmol/L (136-145)
[2020-02-10] MEDS: methylPREDNISolone Sod Succ 40 MG VIAL IVP SCH ×4 (06:14→23:34)
[2020-02-10] MEDS: Vancomycin HCl 1.25 GM in Sodium Chloride 0.9% 250 ML 250 ML IVPB SCH ×2 (06:14→17:11)
[2020-02-10 07:49] LABS: Actual Bicarbonate (HCO3a) 20.8 mEq/L (22-28); Base Excess (BEa) -3.5 mEq/L (-2.0 to +3.0); CO2 Tension 35.3 mmHg (35.0-45.0); Calcium, Ionized (arterial) 1.23 mmol/L (1.12-1.30); Carboxyhemoglobin (COHb) 0.4 gm% (0.0-3.0); Hemoglobin (Hb) 12.7 g/dL (12.0-16.0); O2 Tension (PaO2), arterial 93.4 mmHg (> 80.0); Potassium - ABG Lab 3.77 mmol/L (3.70-5.30); pH, Arterial 7.39 (7.35-7.45)
[2020-02-10 07:51] LABS: ALV-art Gradient 183.325 (0-20); Puncture Site RRA
[2020-02-10] MEDS: Famotidine/PF 20 mg/2ml Vial SLOW IVP SCH ×2 (08:08→21:35)
[2020-02-10] MEDS: Enoxaparin Sodium 40 MG/0.4 ML SYRINGE SC SCH (08:08)
[2020-02-10] MEDS: Dextrose 5% in Water 1,000 ML IV SCH (11:14)
[2020-02-10] MEDS ORDERED: Haloperidol Lactate 5 MG/ML VIAL IM PRN (12:23)
[2020-02-10] MEDS: fentaNYL Citrate/PF 2,000 MCG in Sodium Chloride 0.9% 60 ML IV SCH (13:28)
[2020-02-10] MEDS: Lorazepam 2 MG/ML VIAL SLOW IVP PRN (13:31)
--- NOTE | 2020-02-10 16:46 | PRG ---
DATE OF SERVICE: 02/10/2020 SUBJECTIVE: Ms. Ellison was turned off. She was never awakened ___ consider extubation. She will be switched to Precedex. OBJECTIVE: VITAL SIGNS: Heart rate in the 60s, blood pressure 97/67, respiratory rate is 12. LUNGS: Unchanged. HEART: Unchanged. ABDOMEN: Unchanged. LABORATORY DATA: White count 6.1, hemoglobin 11.9, platelets 180. Sodium 138, potassium 3.6, chloride 109, bicarb 20, BUN 7, and creatinine 0.58. IMPRESSION: Respiratory failure associated with drug overdose. Hopefully, we can extubate her tomorrow. She did pass leak test today, so if she did have vocal cord edema, this appears to be resolving with steroids. Critical care time 30 min. Job ID: [id number] MTDD
[2020-02-10 17:41] LABS: Vancomycin, Trough 17.9 ug/mL
--- NOTE | 2020-02-10 19:44 | PDOC.HOSPP ---
- Subjective Encounter Date: 02/10/20 Encounter Time: 11:00 Subjective: Pt sen for followup re: metab encephalopathy. Intubated, could not complete ROS. - Objective Vital Signs & Weight: Vital Signs (12 hours) Temp Pulse Resp Pulse Ox 02/10/20 16:00 99 F 02/10/20 14:52 64 02/10/20 12:34 62 02/10/20 10:09 69 02/10/20 09:46 98.8 F 02/10/20 07:51 22 H 100 Weight Admit Weight 138 lb Weight 131 lb 9.855 oz Most Recent Monitor Data Heart Rate from ECG 60 NIBP 116/79 NIBP BP-Mean 91 Respiration from ECG 12 SpO2 100 I&O: 02/09/20 02/10/20 02/11/20 06:59 06:59 06:59 Intake Total 2107.8 2723 1180.4 Output Total 4750 1845 1245 Balance -2642.2 878 -64.6 Result Diagrams: 02/10/20 02:53 02/10/20 02:53 Additional Labs: Labs and MARs reviewed by me EKG Reviewed by me: Yes (Tele: NSR) Hospitalist ROS - Review of Systems ROS unobtainable: due to endotracheal tube - Medication Medications: Active Medications Generic Name Dose Route Start Last Admin Trade Name Freq PRN Reason Stop Dose Admin Acetaminophen 650 mg 02/07/20 19:03 02/07/20 19:44 Tylenol [place] 650 mg Q6H PRN Administration Mild Pain (1-3)/FEVER Enoxaparin Sodium 40 mg 02/06/20 09:00 02/10/20 08:08 Lovenox SC 40 mg 0900 LOYDA Administration Famotidine 20 mg 02/05/20 21:00 02/10/20 08:08 Pepcid SLOW IVP 20 mg BID LOYDA Administration Potassium Chloride 40 meq/ 270 mls @ 135 mls/hr 02/05/20 20:15 02/09/20 05:43 Sodium Chloride IVPB 270 mls ASDIR PRN Administration FOR SERUM K+ 2.5 - 3.5 Magnesium Sulfate 1 gm/ Sodium 102 mls @ 102 mls/hr 02/05/20 20:15 02/10/20 06:14 Chloride IV 102 mls PRN PRN Administration MAG LEVEL 1.4 - 2.0 Dextrose/Water 1,000 mls @ 50 mls/hr 02/07/20 09:45 02/10/20 11:14 D5w IV 1,000 mls .Q20H LOYDA Administration Levofloxacin 750 mg/ Device 150 mls @ 100 mls/hr 02/07/20 17:00 02/10/20 16: 10 IVPB 150 mls 1700 LOYDA Administration Vancomycin HCl 1.25 gm/ Sodium 250 mls @ 166.667 mls/hr 02/09/20 06:00 17:11 Chloride IVPB 250 mls 0600,1800 LOYDA Administration Dexmedetomidine HCl 200 mcg/ 50 mls @ 0 mls/hr 02/10/20 12:23 02/10/20 15:47 Sodium Chloride IVPB 50 mls INF PRN Administration Agitation Protocol Per Protocol Methylprednisolone Sodium Succinate 40 mg 02/08/20 12:00 02/10/20 17:11 Solu-Medrol IVP 40 mg Q6HR LOYDA Administration Morphine Sulfate 2 mg 02/07/20 16:06 02/09/20 08:40 Morphine SLOW IVP 03/08/20 16:06 2 mg Q1H PRN Administration BREAKTHROUGH PAIN/Agitation Sodium Chloride 10 ml 02/05/20 21:00 02/10/20 08:08 Flush - Normal Saline IVF 10 ml Q12HR LOYDA Administration - Exam General - other findings: Intubated status Eye: anicteric sclera ENT: moist mucosa Neck: no thyromegaly Heart: RRR Respiratory: CTAB Gastrointestinal: soft, non-tender Skin: no rashes Psychiatric - other findings: Unable to assess Hosp A/P - Plan - Assessment/Plan #acute metabolic encephalopathy -clinically Improving #tricyclic overdose -continue to monitor on telemetry -intubated and in CCU for airway protection, likely extubation tomorrow.
[2020-02-11 03:44] LABS: Band 14 % (5-11); Hemoglobin 13.1 g/dL (12.0-16.0); Lymphocytes 10 % (21-51); MDiff Complete? YES; Mean Corpuscular HGB CONC 34.2 g/dL (32.0-36.0); Mean Corpuscular Hemoglobin 32.9 pg (27.0-31.0); Mean Corpuscular Volume 96.2 fL (78.0-98.0); Mean Platelet Volume 8.8 fL (7.4-10.4); Monocytes 3 % (0-10); Neutrophil 73 % (42-75); Platelet Count 190 thou/uL (130-400); Platelet Morphology Comment Appears Adequate; RBC Distribution Width 12.5 % (11.5-14.5); Red Blood Cell (RBC) Count 3.98 mill/uL (4.20-5.40); White Blood Cell (WBC) Count 5.7 thou/uL (4.8-10.8)
[2020-02-11 03:49] LABS: Anion Gap 12 mmol/L (10-20); BUN (Urea Nitrogen) 10 mg/dL (9.8-20.1); Calc. Creatinine Clearance 85 mL/min (70-130); Calcium 8.2 mg/dL (7.8-10.44); Carbon Dioxide 20 mmol/L (23-31); Chloride 110 mmol/L (98-107); Estimated GFR-MDRD Greater than 90; Glucose 137 mg/dL (80-115); Potassium 3.9 mmol/L (3.5-5.1); Sodium 138 mmol/L (136-145)
[2020-02-11] MEDS: Dextrose 5% in Water 1,000 ML IV SCH (04:23)
[2020-02-11] MEDS: Vancomycin HCl 1.25 GM in Sodium Chloride 0.9% 250 ML 250 ML IVPB SCH (05:55)
[2020-02-11] MEDS: methylPREDNISolone Sod Succ 40 MG VIAL IVP SCH ×2 (05:55→12:41)
--- NOTE | 2020-02-11 07:55 | RAD ---
EXAM: Single view of the chest HISTORY: Ventilated patient with respiratory failure COMPARISON: 02/05/2020 FINDINGS: Single view of the chest shows a normal sized cardiomediastinal silhouette. The lines and tubes are unchanged in position. There is no evidence of consolidation, mass, or pleural effusion. The bones are unremarkable. IMPRESSION: No evidence of acute cardiopulmonary disease
[2020-02-11] MEDS: Enoxaparin Sodium 40 MG/0.4 ML SYRINGE SC SCH (08:38)
[2020-02-11] MEDS: Famotidine/PF 20 mg/2ml Vial SLOW IVP SCH ×2 (08:38→22:12)
[2020-02-11] MEDS ORDERED: Haloperidol Lactate 5 MG/ML VIAL SLOW IVP PRN (12:32)
[2020-02-11] MEDS ORDERED: Haloperidol Lactate 5 MG/ML VIAL IM PRN (12:33)
[2020-02-11 13:45] VITALS: BMI 21.2
--- NOTE | 2020-02-11 16:30 | PRG ---
DATE OF SERVICE: 02/11/2020 SUBJECTIVE: Jonathon Ellison self-extubated this morning. OBJECTIVE: VITAL SIGNS: She is afebrile. Heart rate is in the 60s, respiratory rates in the teens, oximetry is 93% on room air, and blood pressure 107/71. LUNGS: Clear. HEART: Regular rhythm. ABDOMEN: Soft. LABORATORY DATA: White count 5.7, hemoglobin 13.1, and platelets 190. Sodium 138, potassium 3.9, chloride 110, bicarb 20, BUN 10, and creatinine 0.62. IMPRESSION: 1. Respiratory failure associated with drug overdose. 2. Persistent encephalopathy. She probably needs more Haldol. Chest x-ray showed no infiltrates today. She can move out of the critical care unit in my opinion, but she may end up needing a sitter, however. Job ID: [id number]
--- NOTE | 2020-02-11 18:50 | PDOC.HOSPP ---
- Subjective Encounter Date: 02/11/20 Encounter Time: 09:40 Subjective: Pt seen for followup re: drug overdose. Pt self-extubated today. Skleepy, not answering questions, could not complete ROS. - Objective Vital Signs & Weight: Vital Signs (12 hours) Temp Pulse Resp BP Pulse Ox 02/11/20 16:05 59 L 17 107/71 93 L 02/11/20 16:00 93 L 02/11/20 12:00 99.5 F 98 02/11/20 08:00 98.1 F 16 100 02/11/20 07:31 59 L Weight Admit Weight 138 lb Weight 131 lb 2.801 oz Most Recent Monitor Data Heart Rate from ECG 63 NIBP 117/74 NIBP BP-Mean 88 Respiration from ECG 19 SpO2 97 I&O: 02/10/20 02/11/20 02/12/20 06:59 06:59 06:59 Intake Total 2723 1915.9 824.7 Output Total 1845 2575 1880 Balance 878 -659.1 -1055.3 Result Diagrams: 02/11/20 02:53 02/11/20 02:53 Additional Labs: Labs and MARs reviewed by me EKG Reviewed by me: Yes (Tele: NSR) Hospitalist ROS - Review of Systems ROS unobtainable: due to mental status - Medication Medications: Active Medications Generic Name Dose Route Start Last Admin Trade Name Freq PRN Reason Stop Dose Admin Acetaminophen 650 mg 02/07/20 19:03 02/07/20 19:44 Tylenol [place] 650 mg Q6H PRN Administration Mild Pain (1-3)/FEVER Enoxaparin Sodium 40 mg 02/06/20 09:00 02/11/20 08:38 Lovenox SC 40 mg 0900 LOYDA Administration Famotidine 20 mg 02/05/20 21:00 02/11/20 08:38 Pepcid SLOW IVP 20 mg BID LOYDA Administration Potassium Chloride 40 meq/ 270 mls @ 135 mls/hr 02/05/20 20:15 02/09/20 05:43 Sodium Chloride IVPB 270 mls ASDIR PRN Administration FOR SERUM K+ 2.5 - 3.5 Magnesium Sulfate 1 gm/ Sodium 102 mls @ 102 mls/hr 02/05/20 20:15 02/10/20 06:14 Chloride IV 102 mls PRN PRN Administration MAG LEVEL 1.4 - 2.0 Dextrose/Water 1,000 mls @ 50 mls/hr 02/07/20 09:45 02/11/20 04:23 D5w IV 1,000 mls .Q20H LOYDA Administration Levofloxacin 750 mg/ Device 150 mls @ 100 mls/hr 02/07/20 17:00 02/11/20 17: 42 IVPB 150 mls 1700 LOYDA Administration Morphine Sulfate 2 mg 02/07/20 16:06 02/09/20 08:40 Morphine SLOW IVP 03/08/20 16:06 2 mg Q1H PRN Administration BREAKTHROUGH PAIN/Agitation Sodium Chloride 10 ml 02/05/20 21:00 02/11/20 08:38 Flush - Normal Saline IVF 10 ml Q12HR LOYDA Administration - Exam General Appearance: awake alert Eye: anicteric sclera ENT: moist mucosa Neck: supple Heart: no gallops, no rubs Respiratory: CTAB Gastrointestinal: soft, non-tender Skin: no rashes Psychiatric: lethargic Hosp A/P - Plan - Assessment/Plan #tricyclic overdose -Resolved #acute metabolic encephalopathy -clinically Improving -self-extubated today, transfer to medical floor.
[2020-02-12] MEDS: Dextrose 5% in Water 1,000 ML IV SCH ×2 (02:49→03:20)
[2020-02-12 07:02] LABS: Hemoglobin 12.2 g/dL (12.0-16.0); Mean Corpuscular HGB CONC 33.4 g/dL (32.0-36.0); Mean Corpuscular Hemoglobin 32.2 pg (27.0-31.0); Mean Corpuscular Volume 96.6 fL (78.0-98.0); Mean Platelet Volume 8.6 fL (7.4-10.4); Platelet Count 232 thou/uL (130-400); RBC Distribution Width 12.6 % (11.5-14.5); Red Blood Cell (RBC) Count 3.79 mill/uL (4.20-5.40); White Blood Cell (WBC) Count 6.8 thou/uL (4.8-10.8)
[2020-02-12 07:10] LABS: Anion Gap 11 mmol/L (10-20); BUN (Urea Nitrogen) 11 mg/dL (9.8-20.1); Calc. Creatinine Clearance 79 mL/min (70-130); Calcium 7.9 mg/dL (7.8-10.44); Carbon Dioxide 24 mmol/L (23-31); Chloride 110 mmol/L (98-107); Estimated GFR-MDRD 88; Glucose 100 mg/dL (80-115); Sodium 142 mmol/L (136-145)
[2020-02-12] MEDS: Famotidine/PF 20 mg/2ml Vial SLOW IVP SCH ×2 (08:16→20:49)
[2020-02-12] MEDS: Enoxaparin Sodium 40 MG/0.4 ML SYRINGE SC SCH (08:16)
[2020-02-12 08:46] LABS: Band 2 % (5-11); Lymphocytes 20 % (21-51); MDiff Complete? YES; Monocytes 11 % (0-10); Myelocyte 1 % (0-0); Neutrophil 64 % (42-75); Platelet Morphology Comment Appears Adequate; Polychromasia SLIGHT = 2-3 cells (100X) (0-2/hpf); Reactive Lymphocytes 2 % (0-10)
[2020-02-12] MEDS ORDERED: Promethazine HCl 25 MG/ML VIAL IM/IV PRN (11:17)
--- NOTE | 2020-02-12 15:13 | PDOC.HOSPP ---
- Subjective Encounter Date: 02/12/20 Encounter Time: 09:20 Subjective: Pt seen for followup re: overdose with tricyclic antidepressants. Denies chest pain. - Objective Vital Signs & Weight: Vital Signs (12 hours) Temp Pulse Resp BP Pulse Ox 02/12/20 07:28 98.2 F 80 18 132/72 92 L 02/12/20 03:12 98.1 F 81 18 129/74 93 L Weight Admit Weight 138 lb Weight 132 lb 4.438 oz Most Recent Monitor Data Heart Rate from ECG 63 NIBP 117/74 NIBP BP-Mean 88 Respiration from ECG 19 SpO2 97 I&O: 02/11/20 02/12/20 02/13/20 06:59 06:59 06:59 Intake Total 1915.9 1424.7 Output Total 2575 2770 Balance -659.1 -1345.3 Result Diagrams: 02/12/20 06:20 02/12/20 06:20 Additional Labs: Labs and MARs reviewed by ms Hospitalist ROS - Review of Systems Respiratory: denies: cough, dry, shortness of breath, hemoptysis, SOB with excertion, pleuritic pain, sputum, wheezing Cardiovascular: denies: chest pain, palpitations, orthopnea, paroxysmal noc. dyspnea, edema, light headedness - Medication Medications: Active Medications Generic Name Dose Route Start Last Admin Trade Name Freq PRN Reason Stop Dose Admin Acetaminophen 650 mg 02/07/20 19:03 02/07/20 19:44 Tylenol [place] 650 mg Q6H PRN Administration Mild Pain (1-3)/FEVER Enoxaparin Sodium 40 mg 02/06/20 09:00 02/12/20 08:16 Lovenox SC 40 mg 0900 LOYDA Administration Famotidine 20 mg 02/05/20 21:00 02/12/20 08:16 Pepcid SLOW IVP 20 mg BID LOYDA Administration Dextrose/Water 1,000 mls @ 50 mls/hr 02/07/20 09:45 02/12/20 03:20 D5w IV 1,000 mls .Q20H LOYDA Administration Levofloxacin 750 mg/ Device 150 mls @ 100 mls/hr 02/07/20 17:00 02/11/20 17: 42 IVPB 150 mls 1700 LOYDA Administration Promethazine HCl 25 mg 02/12/20 11:17 02/12/20 11:40 Phenergan IM/IV 25 mg Q6H PRN Administration Nausea/Vomiting Sodium Chloride 10 ml 02/05/20 21:00 02/12/20 08:16 Flush - Normal Saline IVF 10 ml Q12HR LOYDA Administration - Exam General Appearance: awake alert Eye: PERRL ENT: normocephalic atraumatic Neck: supple, no JVD Heart: RRR, no rubs Respiratory: CTAB, no rales Gastrointestinal: soft, non-distended Skin: no rashes Musculoskeletal: no muscle wasting Psychiatric: normal affect, normal behavior Hosp A/P - Plan - Assessment/Plan #tricyclic overdose -Resolved #acute metabolic encephalopathy -clinically Improving Pt reportedly told nurse in the afternoon that she was feeling short of breath and has body aches; being ruled out for COVID 19.
[2020-02-12] MEDS: Guaifenesin DM 100-10/5 ML UDCUP PO PRN (22:34)
[2020-02-12] MEDS: Acetaminophen 650 MG/20.3 ML UDCUP PO PRN (23:51)
[2020-02-13] MEDS: Dextrose 5% in Water 1,000 ML IV SCH (05:09)
[2020-02-13 06:35] LABS: Band 4 % (5-11); Eosinophils 1 % (0-10); Hemoglobin 12.7 g/dL (12.0-16.0); Lymphocytes 32 % (21-51); MDiff Complete? YES; Mean Corpuscular HGB CONC 33.3 g/dL (32.0-36.0); Mean Corpuscular Volume 95.9 fL (78.0-98.0); Metamyelocyte 3 % (0-0); Monocytes 12 % (0-10); Neutrophil 48 % (42-75); Platelet Count 223 thou/uL (130-400); Platelet Morphology Comment Appears Adequate; RBC Distribution Width 12.6 % (11.5-14.5); Red Blood Cell (RBC) Count 3.97 mill/uL (4.20-5.40); White Blood Cell (WBC) Count 5.7 thou/uL (4.8-10.8)
[2020-02-13 06:48] LABS: Anion Gap 12 mmol/L (10-20); BUN (Urea Nitrogen) 8 mg/dL (9.8-20.1); Calc. Creatinine Clearance 73 mL/min (70-130); Calcium 8.1 mg/dL (7.8-10.44); Carbon Dioxide 27 mmol/L (23-31); Chloride 108 mmol/L (98-107); Estimated GFR-MDRD 80; Glucose 103 mg/dL (80-115); Potassium 3.2 mmol/L (3.5-5.1); Sodium 144 mmol/L (136-145)
[2020-02-13] MEDS: Famotidine/PF 20 mg/2ml Vial SLOW IVP SCH ×2 (08:00→21:02)
[2020-02-13] MEDS: Enoxaparin Sodium 40 MG/0.4 ML SYRINGE SC SCH (08:00)
[2020-02-13] MEDS ORDERED: Potassium Chloride 20 MEQ in Premix Bag 1 BAG IVPB SCH (09:00)
[2020-02-13] MEDS: Acetaminophen 650 MG/20.3 ML UDCUP PO PRN ×2 (11:26→21:26)
[2020-02-13] MEDS: Guaifenesin DM 100-10/5 ML UDCUP PO PRN ×2 (13:27→21:26)
[2020-02-13 14:27] LABS: SARS-CoV-2 MS2 Positive; SARS-CoV-2 N Gene Negative; SARS-CoV-2 S Gene Negative; SARS-CoV-2 orf1ab Negative
--- NOTE | 2020-02-13 18:48 | PDOC.HOSPP ---
- Subjective Encounter Date: 02/13/20 Encounter Time: 18:42 Subjective: Pt seen for followup re: tricyclic antidepressant overdose. Feels tired. COVID 19 negative. - Objective Vital Signs & Weight: Vital Signs (12 hours) Temp Pulse Resp BP Pulse Ox 02/13/20 16:42 98.4 F 86 18 148/90 H 96 02/13/20 12:00 98.6 F 101 H 20 157/90 H 98 02/13/20 08:00 98.9 F 86 18 137/92 H 96 Weight Admit Weight 138 lb Weight 132 lb 4.438 oz Most Recent Monitor Data Heart Rate from ECG 63 NIBP 117/74 NIBP BP-Mean 88 Respiration from ECG 19 SpO2 97 I&O: 02/12/20 02/13/20 02/14/20 06:59 06:59 06:59 Intake Total 1424.7 1050 Output Total 2770 1600 2150 Balance -1345.3 -550 -2150 Result Diagrams: 02/13/20 06:07 02/13/20 06:07 Additional Labs: Labs and MARs reviewed by co Hospitalist ROS - Review of Systems Cardiovascular: denies: chest pain, palpitations, orthopnea, paroxysmal noc. dyspnea, edema, light headedness Skin: denies: rash, lesions, liberty, bruising - Medication Medications: Active Medications Generic Name Dose Route Start Last Admin Trade Name Freq PRN Reason Stop Dose Admin Acetaminophen 650 mg 02/07/20 18:23 02/13/20 11:26 Tylenol Elixir PO 650 mg Q6H PRN Administration Mild Pain (1-3) Acetaminophen 650 mg 02/07/20 19:03 02/07/20 19:44 Tylenol [place] 650 mg Q6H PRN Administration Mild Pain (1-3)/FEVER Enoxaparin Sodium 40 mg 02/06/20 09:00 02/13/20 08:00 Lovenox SC 40 mg 0900 LOYDA Administration Famotidine 20 mg 02/05/20 21:00 02/13/20 08:00 Pepcid SLOW IVP 20 mg BID LOYDA Administration Guaifenesin/Dextromethorphan 15 ml 02/12/20 22:11 02/13/20 13:27 Robitussin Dm PO 15 ml Q4H PRN Administration Cough Dextrose/Water 1,000 mls @ 50 mls/hr 02/07/20 09:45 02/13/20 05:09 D5w IV 1,000 mls .Q20H LOYDA Administration Levofloxacin 750 mg/ Device 150 mls @ 100 mls/hr 02/07/20 17:00 02/13/20 16: 33 IVPB 150 mls 1700 LOYDA Administration Promethazine HCl 25 mg 02/12/20 11:17 02/12/20 11:40 Phenergan IM/IV 25 mg Q6H PRN Administration Nausea/Vomiting Sodium Chloride 10 ml 02/05/20 21:00 02/13/20 08:00 Flush - Normal Saline IVF 10 ml Q12HR LOYDA Administration - Exam General Appearance: awake alert Eye: anicteric sclera ENT: moist mucosa Neck: supple Heart: RRR Respiratory: CTAB Gastrointestinal: non-tender, non-distended Skin: no lesions Musculoskeletal: no muscle wasting Psychiatric: normal behavior Hosp A/P - Plan - Assessment/Plan #acute metabolic encephalopathy -Improved #tricyclic overdose -Resolved COVID 19 negative [facility] eval
[2020-02-14] MEDS: Acetaminophen 650 MG/20.3 ML UDCUP PO PRN (03:35)
[2020-02-14] MEDS: Guaifenesin DM 100-10/5 ML UDCUP PO PRN (03:36)
[2020-02-14] MEDS: Dextrose 5% in Water 1,000 ML IV SCH (03:37)
[2020-02-14 07:20] VITALS: TEMP 98.7
[2020-02-14] MEDS ORDERED: Potassium Chloride 20 MEQ TAB PO SCH (07:45)
[2020-02-14 08:16] LABS: Anion Gap 12 mmol/L (10-20); BUN (Urea Nitrogen) 7 mg/dL (9.8-20.1); Calc. Creatinine Clearance 74 mL/min (70-130); Calcium 8.7 mg/dL (7.8-10.44); Carbon Dioxide 27 mmol/L (23-31); Chloride 106 mmol/L (98-107); Estimated GFR-MDRD 80; Glucose 111 mg/dL (80-115); Sodium 142 mmol/L (136-145)
[2020-02-14 08:21] LABS: Potassium 2.9 mmol/L (3.5-5.1)
[2020-02-14] MEDS: Enoxaparin Sodium 40 MG/0.4 ML SYRINGE SC SCH (08:25)
[2020-02-14] MEDS: Famotidine/PF 20 mg/2ml Vial SLOW IVP SCH (08:26)
[2020-02-14] MEDS ORDERED: Benzonatate 100 MG CAP PO PRN (08:41)
[2020-02-14 09:34] LABS: Band 2 % (5-11); Hemoglobin 13.9 g/dL (12.0-16.0); Lymphocytes 33 % (21-51); MDiff Complete? YES; Mean Corpuscular HGB CONC 34.5 g/dL (32.0-36.0); Mean Corpuscular Hemoglobin 32.9 pg (27.0-31.0); Mean Corpuscular Volume 95.6 fL (78.0-98.0); Monocytes 4 % (0-10); Neutrophil 61 % (42-75); Platelet Count 247 thou/uL (130-400); RBC Distribution Width 12.7 % (11.5-14.5); Red Blood Cell (RBC) Count 4.22 mill/uL (4.20-5.40); White Blood Cell (WBC) Count 5.7 thou/uL (4.8-10.8)
[2020-02-14 11:52] LABS: Potassium 3.6 mmol/L (3.5-5.1)
--- NOTE | 2020-02-14 13:02 | EKG ---
Test Reason : OD Blood Pressure : / mmHG Vent. Rate : 130 BPM Atrial Rate : 131 BPM P-R Int : 148 ms QRS Dur : 092 ms QT Int : 302 ms P-R-T Axes : 065 -62 033 degrees QTc Int : 444 ms Sinus tachycardia Possible Left atrial enlargement Left axis deviation Pulmonary disease pattern Inferior infarct , age undetermined Abnormal ECG Confirmed by ZAFAR HILL DO ([id number]), editor magazine [employer] ([id number]) on 02/14/2020 1:01:44 PM Referred By: SERGIO Confirmed By:ZAFAR HILL DO
[2020-02-15 07:56] VITALS: BP 130/92
--- NOTE | 2020-02-16 10:37 | DIS ---
DATE OF ADMISSION: 02/05/2020 DATE OF DISCHARGE: 02/14/2020 DISCHARGE DIAGNOSES: 1. Acute metabolic encephalopathy, possibly secondary to TCA overdose. 2. Hypokalemia. 3. Gastroesophageal reflux disease. 4. Cough/possibly psychiatric versus GERD. 5. Depression/anxiety with history of prior suicide attempt. CONSULTATIONS: Jake Garcia with Pulmonary. BRIEF HISTORY OF PRESENT ILLNESS: This is a 65-year-old female with a past medical history of suicide attempt in the past, who presented to the emergency room after she was found unresponsive in her house. She was found with a bottle of amitriptyline next to her. She was noted to have a widened QRS on her EKG and was given sodium bicarb. Her heart rate was 130 upon presentation. She had a Sandra coma Scale of 7 and was intubated for airway protection. CT head and CT cervical spine were normal. The patient was subsequently extubated on 02/10. The patient reportedly had self-extubated. Repeat chest x-ray done on 02/10 was normal. She finished a 7 day course of levaquin. She was tested negative for COVID.She will be prescribed Tessalon Perles p.r.n. for cough. Patient denied any suicidal ideation, however son stated patient has attempted suicide previously and was concerned about sending her home without adjustments to her psychitaric medication. The patient states she was taking buspar and amitryptyline for depression. She was seen by [facility] who agreed to accept her to inpatient psychiatry. Hypokalemia: The patient had a potassium of 2.9. She reported that she was not eating adequately. She denied diarrhea, nausea, or vomiting. She ate a regular diet today and was given potassium replacement with improvement in her potassium to 3.6. Possible GERD: The patient reports a dry cough and some heartburn. She will be discharged with Pepcid. DISCHARGE PHYSICAL EXAMINATION: VITAL SIGNS: Temperature 98.7, heart rate 94, respiratory rate 16, O2 saturation 95% on room air, blood pressure 129/84. GENERAL: The patient is alert, awake, oriented x3. CVS: Regular rate and rhythm with no murmurs, rubs, or gallops. LUNGS: Clear to auscultation bilaterally. ABDOMEN: Positive bowel sounds, soft, nontender, nondistended. EXTREMITIES: No edema. LABORATORY DATA: CBC 02/13: Normal. BMP 02/13: Sodium 142, potassium 3.6, chloride 106, carbon dioxide 27, BUN 12, creatinine 0.73. UA 02/04: 100 ketones, 250 leukocyte esterase, 4 to 6 white blood cells. U-tox: Positive for TCA. Alcohol level less than 10. COVID PCR: Negative. IMAGING: Chest x-ray 02/04: No acute disease. CT brain 02/04: No acute disease. CT cervical spine 02/04: No acute disease. Chest x-ray 02/10: No acute disease. DISCHARGE CONDITION: Stable. ACTIVITY: As tolerated. DIET: Regular diet. DISCHARGE INSTRUCTIONS: The patient to follow up with her PCP in a week. She will be transferred to [facility] for further psychiatric care. Job ID: [id number] [facility]
--- NOTE | 2020-02-17 07:11 | EKG ---
Test Reason : Blood Pressure : / mmHG Vent. Rate : 096 BPM Atrial Rate : 096 BPM P-R Int : 110 ms QRS Dur : 070 ms QT Int : 340 ms P-R-T Axes : 033 -36 007 degrees QTc Int : 429 ms Sinus rhythm with short [place] Left axis deviation Possible Anterior infarct , age undetermined Abnormal ECG When compared with ECG of 05-FEB-2020 18:09, Questionable change in QRS duration Borderline criteria for Anterior infarct are now Present Criteria for Inferior infarct are no longer Present Confirmed by DR. Davi ROSSI ([id number]) on 02/17/2020 7:10:58 AM Referred By: LEE Confirmed By:DR. Davi ROSSI
== END 2020-02-14 18:55 | DRG 917 ==
LOC: ERS 17:46 → CCU 19:07 → T4-A 02-11 15:38
PROVIDERS: ADMIT Internal Medicine; ATTEND Internal Medicine
PROC: 0BH17EZ Insertion of Endotracheal Airway into Trachea, Via Natural or Artificial Opening (ICD-10-PCS; principal; 2020-02-05)
PROC: 5A1955Z Respiratory Ventilation, Greater than 96 Consecutive Hours (ICD-10-PCS; 2020-02-05)
DX: T43.011A Poisoning by tricyclic antidepressants, accidental (unintentional), initial encounter (principal); G92 Toxic encephalopathy; J96.00 Acute respiratory failure, unspecified whether with hypoxia or hypercapnia; E87.2 Acidosis; Z20.828 Contact with and (suspected) exposure to other viral communicable diseases; F41.9 Anxiety disorder, unspecified; F32.9 Major depressive disorder, single episode, unspecified; F17.210 Nicotine dependence, cigarettes, uncomplicated; E87.8 Other disorders of electrolyte and fluid balance, not elsewhere classified; E87.6 Hypokalemia; K21.9 Gastro-esophageal reflux disease without esophagitis; Z90.710 Acquired absence of both cervix and uterus; Z98.51 Tubal ligation status; Z79.899 Other long term (current) drug therapy
CPT/HCPCS: 31500; 36415; 51702; 70450; 71045; 72125; 80048; 80053; 80202; 80306; 80307; 81003; 81015; 82805; 83605; 83735; 84484; 85007; 85025; 85027; 87040; 87086; 87635; 93005; 93010; 94002; 94003; 96374; 96375; 96376; 99292; J1630; J1650; J1956; J2060; J2250; J2270; J2550; J2920; J3010; J3370; J3475; J3480; J3490; J7050; S0028; U0003